=== PATIENT | male | born 1995 | race African-American/Black ===

== ENCOUNTER 2023-03-31 10:04 | Emergency (ER) | payer SELFPAY ==
--- OUTSIDE RECORDS SUMMARY | 2023-03-31 10:09 | XMS REPORT | Continuity of Care Document ---
:1995 Author Organization [facility] t Address [address] [facility] [address] [place] [address] Care Team Providers Name Role Phone Asked, No Pcp Primary Care Physician Unavailable Apple Khalil MD Attending Clinician Oswald Mitchell MD Attending Clinician LOGAN EASTMAN Attending Clinician Unavailable ARABELLA BELL Attending Clinician Unavailable SHMUEL STOCKTON Attending Clinician Unavailable MD APPLE KHALIL Attending Clinician Unavailable YEHUDA MARIA Attending Clinician Unavailable DG XIAO Attending Clinician Unavailable Status, Fax Attending Clinician Unavailable Zarina Marte Attending Clinician [phone] Yun Waldron Attending Clinician Unavailable Martina Jones Attending Clinician Unavailable MONIQUE HECK Attending Clinician Unavailable Andrew Muhammad Attending Clinician [phone] Lauryn Koehler Attending Clinician Unavailable Emily Coburn Attending Clinician Unavailable Varinder Jones Attending Clinician [phone] Gisella Mendoza Attending Clinician [phone] Annelise Schneider Attending Clinician Unavailable Jenifer Bolanos Attending Clinician Unavailable Og Adame Attending Clinician Unavailable Beulah Long Attending Clinician [phone] Alecia Andujar Attending Clinician Unavailable Nuria Wilkins Attending Clinician [phone] Jenifer Nguyen Attending Clinician Unavailable Carola Pan Attending Clinician [phone] Juhi Brambila Attending Clinician Unavailable Roberto Carlos Berg Attending Clinician Unavailable Rosa M Andujar Attending Clinician Unavailable Pito Camarena Attending Clinician Unavailable Netta Jarrett Attending Clinician [phone] WILBER MCINTYRE Admitting Clinician Unavailable Zarina Marte Unavailable [phone] Nuria Wilkins Unavailable [phone] Payers Payer Name Policy Type Policy Number Effective Date Expiration Date S stone Sliding Fee - CI [id number] 2017 2018 [facility] Cat 1 00:00:00 00:00:00 Community Health Sliding Fee - CI NONE 2015 2016 [facility] Cat 1 00:00:00 00:00:00 Community Health Sliding Fee - MC none 2015 2016 [facility] Cat 1 00:00:00 00:00:00 [facility] Problems Condition Condition Condition Status Onset Resolution Last Treating Co mments Source Name Details Category Date Date Treatment Clinician Date Rash, oth Condition Active 2018-062019-03-11 Rodolfo Marte nonspecifi 0-04 14:58:30 Zarina Lagunas c skin 00:00: ty eruption 00 Health Hair loss Condition Active 2018-062019-03-11 Rodolfo Marte 0-04 14:58:30 Zarina Comm uni 00:00: ty 00 Health Influenza Condition Active 2016-062017-05-18 Rodolfo Marte A 2-11 10:27:34 Zarina Comm uni 00:00: ty 00 Health Vaccinatio Condition Active 2016-062017-04-24 Rodolfo Marte for HPV 06-24 15:10:14 Zarina Oneill ommuni 00:00: ty 00 Health Low back Condition Active 2016-062017-04-24 Rodolfo Marte pain 06-24 15:10:14 Zarina Comm uni 00:00: ty 00 Health Physical Condition Active 2016-062017-04-24 Rodolfo Marte examinatio 06-24 15:10:14 Zarina Lagunas n 00:00: ty 00 Health ATTENTION Condition Active 2014-01-11 Cory [facility] DEFICIT 01-11 16:05:54 Rome Best i DISORDER, 00:00: Nuria ty INATTENTIV 00 Health E TYPE Allergies, Adverse Reactions, Alerts This patient has no known allergies or adverse reactions. Social History Social Habit Start Date Stop Date Quantity Comments Source Sexual orientation [facility] History of Social 2022-07-28 2022-07-[address] function 00:00:00 00:00:00 Hospital Tobacco use and 2022-07-28 2022-07-28 Smokeless tobacco Me thodist exposure 00:00:00 00:00:00 non-user Hospital Alcohol intake 2022-07-28 2022-07-28 Current non-drinker M ethodist 00:00:00 00:00:00 of alcohol Hospital (finding) social history E&M 2019-03-11 2019-03-11 Single, has one L egacy Community 14:44:59 14:44:59 sister. Father Health lives in [facility]. Born in [facility]. City: [place]. Lives with mother and grandmother. Dropped out in the 10th grade, has never worked, mother pays all expenses. Buddhist drug use, illicit 2019-03-11 2019-03-11 Never [facility] 14:44:59 14:44:59 Health alcohol use 2019-03-11 2019-03-11 Never [facility] ity 14:44:59 14:44:59 Health social history 2019-03-11 2019-03-11 reviewed today [facility] reviewed E&M 14:44:59 14:44:59 Health is there any 2019-03-11 2019-03-11 No [facility] Commu nity chance that you 14:44:59 14:44:59 Health could be ? sexual orientation 2019-03-11 2019-03-11 Heterosexual [facility] cy Community 14:44:59 14:44:59 Health family support 2014-01-11 2014-01-11 Single, has one Legac y Community 13:08:35 13:08:35 sister. Father Health lives in [facility]. home/family 2014-01-11 2014-01-11 Lives with mother [facility] situation, 13:08:35 13:08:35 and grandmother. Health assessment Sex Ass[birth year] At [birth year] [facility] 00:00:00 00:00:00 Hospital Smoking Status Start Date Stop Date Source Never smoked tobacco [facility] Medications Ordered Filled Start Stop Current Ordering Indication Dosage Frequency Signature Comments Components Source Medication Medication Date Date Medication? Clinician (SIG) Name Name ibuprofen Yes 800mg Q8H Take 1 Metho di (ADVIL) 800 2-[address] MG tablet 00:00: (800 mg Hospi ta 00 total) by l mouth every 8 (eight) hours as needed for mild pain or moderate pain for up to 30 doses. cyclobenzap 2022- No 10mg Q8H Take 1 Met hodi rine 07-28 tablet (10 st (FLEXERIL) 00:00: 04:59 mg total) H ospita 10 mg 00 :00 by mouth l tablet every 8 (eight) hours as needed for muscle spasms for up to 30 days. methylPREDN Yes follow Meth dorothy ISolone 06-[address] (MEDROL 00:00: directions Hosp ama DOSEPAK) 4 00 l mg tablet bromphenira 2022- No 5mL Q.25D Take 5 mL Methodi mine-pseudo 06-21 by mouth 4 s t eph-DM 00:00: 05:59 (four) Hospita - 00 :00 times a l mg/5 mL day as syrup needed for allergies for up to 10 days. azithromyci 2022- No 250mg QD Take 1 Me thodi n 06-[address] (ZITHROMAX) 00:00: 05:59 (250 mg Ho spita 250 MG 00 :00 total) by l tablet mouth daily for 4 days. Take first 2 tablets together, then 1 every day until finished. ibuprofen 2022- No 800mg Q8H Take 1 Meth dorothy (ADVIL,MOTR 02-[address] IN) 800 MG 00:00: 00:00 (800 mg Hos chester tablet 00 :00 total) by l mouth every 8 (eight) hours as needed for mild pain or moderate pain for up to 30 doses. TAMIFLU 2016-06 Yes Zarina 1 By Mouth [facility] (OSELTAMIVI 2-11 [facility] Twice a Com marya R 00:00: Day. ty PHOSPHATE) 00 Health 75 MG CAPS (CYCLOBENZA 2016-06 Yes Zarina 1 By Mouth [facility] MICHELE HCL) 1-17 [facility] three Commun i 10 MG TABS 00:00: times a ty 00 day as Health needed for muscle spasm (NAPROXEN) 2016-06 Yes Zarina 1 by mouth [facility] 500 MG TABS 1-17 [facility] twice a Com marya 00:00: day as ty 00 needed for Health pain and inflammati on ADDERALL Yes One tab in [id number] [facility] (AMPHETAMIN 4-15 the am and 385 Co mmuni E-DEXTROAMP 00:00: one at ty HETAMINE) 00 noon. Health 10 MG TABS Immunizations Ordered Immunization Filled Immunization Date Status Commen ts Source Name Name Tdap Unknown Completed [facility] Vital Signs Vital Name Observation Time Observation Value Comments Source Systolic blood 2022-07-28 22:33:00 123 mm[Hg] Method [facility] pressure Diastolic blood 2022-07-28 22:33:00 66 mm[Hg] [facility] pressure Heart rate 2022-07-28 22:33:00 61 /min [facility] Respiratory rate 2022-07-28 22:33:00 15 /min [facility] Oxygen saturation in 2022-07-28 22:33:00 100 /min [facility] Arterial blood by Pulse oximetry Body temperature 2022-07-28 22:17:00 37.06 Anna [facility] Body height 2022-07-28 20:17:34 165.1 cm [facility] Body weight 2022-07-28 20:17:34 95.255 kg [facility] BMI 2022-07-28 20:17:34 34.95 kg/m2 [facility] Procedures Procedure Date / Time Performed Performing Clinician Sourc e XR LUMBAR SPINE 2 OR 3 2022-07-28 22:05:48 Quinton Herman [facility] VW [place] RESPIRATORY PATHOGEN 2022-06-21 19:49:00 Oswald Mitchell [facility] PANEL WITH COVID-19 RT-PCR Rapid Flu - In House 2017-05-18 10:25:04 Zarina Marte [facility] Gardasil / HPV - 2017-04-24 15:02:07 Zarina Marte C ommunity [facility] Diagnostic evaluation 2014-01-11 13:53:28 [facility] [place] [facility] Community with medical - [id number] [facility] Planned Activity Planned Date Details Comments Source Future Scheduled 2023-03-20 COVID-19 VACCINE [facility] Test 01:57:56 (#1) [code = COVID-19 VACCINE (#1)] Future Scheduled 2023-03-20 Hepatitis C [facility] Test 01:57:56 screening (procedure) [code = 302759017] Future Scheduled 2023-03-20 INFLUENZA VACCINE [facility] Test 01:57:56 (#1) [code = INFLUENZA VACCINE (#1)] Future Scheduled 2023-03-20 RSV VACCINES > 60 Method [facility] Hospital Test 01:57:56 YR (1 - 1-dose 60+ series) [code = RSV VACCINES > 60 YR (1 - 1-dose 60+ series)] Encounters Start End Encounter Admission Attending Care Care Encounter Source Date/Time Date/Time Type Type Clinicians Facility Department ID 2022-07-28 2022-07-28 Emergency [facility], 1.2.840.1 [id number] Methodi 15:09:00 16:34:[address] 3.430.2.7 Hospit a .3.314424 l .8 2022-07-28 2022-07-28 Emergency 1.2.840.1 [id number] Methodi 14:13:00 14:28:[address] 3.430.2.7 Hospit a .3.394626 l .8 2022-07-28 2022-07-28 Emergency [facility] [id number] [place] 00:00:00 00:00:[address] 2022-07-28 2022-07-28 Emergency [facility] [id number] [place] 00:00:00 00:00:00 APPLE [address] 2022-07-28 2022-07-28 Travel 1.2.840.1 1.2.569.893 [id number] Methodi 00:00:00 00:00:[address] 3.430.2.7 0.2.7.3.698 Ho spita .3.472532 084.8 l .8 2022-06-21 2022-06-21 Emergency Bharat, 1.2.840.1 [id number] Methodi 11:30:00 15:37:00 Oswald Jones [address]01.1.[address] 3.430.2.7 Hospit a .3.520205 l .8 2022-06-21 2022-06-21 Emergency BHARAT, [place] [address] [id number] [place] 00:00:00 00:00:00 OSWALD 857 Method i 2022-06-21 2022-06-21 Travel 1.2.840.1 1.2.735.616 [id number] Methodi 00:00:00 00:00:[address] 3.430.2.7 0.2.7.3.698 Ho spita .3.805646 084.8 l .8 2022-01-07 2022-01-07 Emergency EASTMAN, [place] [address] [id number] [place] 00:00:00 00:00:00 LOGAN 853 Method i 2021-12-18 2021-12-18 Emergency EASTMAN, [place] [address] [id number] [place] 00:00:00 00:00:00 LOGAN 391 Method i 2021-05-26 2021-05-26 Emergency BHARAT, [facility] [id number] [place] 00:00:00 00:00:00 OSWALD 117 Method i 2021-04-11 2021-04-11 Emergency BELL, BELL [place] [address] [id number] [place] 00:00:00 00:00:00 831 Method i 2021-03-01 2021-03-01 Emergency STOCKTON, [place] [address] [id number] [place] 00:00:00 00:00:00 SHMUEL 122 Method i 2020-09-05 2020-09-05 Emergency STOCKTON, [place] [address] [id number] [place] 00:00:00 00:00:00 SHMUEL 240 Method i 2020-08-16 2020-08-16 Emergency GUHARSAMM, [place] [address] [id number] [place] 00:00:00 00:00:00 APPLE 121 Method i 2019-04-22 2019-04-22 Emergency RIVENES, [facility] [id number] [place] 00:00:00 00:00:00 YEHUDA 668 Method i 2019-03-22 2019-03-23 Emergency NINOSKA, [facility] [id number] [place] 00:00:00 00:00:00 CONTE 777 Method i 2019-03-11 2019-03-11 Office Status, Fax [facility] En[facility]/ [facility] 00:00:00 00:00:00 [facility] [id number] [facility] [id number] Services Health 2019-03-11 2019-03-11 Office Status, Fax [facility] En[facility]/ [facility] 00:00:00 00:00:00 Visit [facility] [id number] [facility] 938112 [facility] Health 2019-03-11 2019-03-11 Office Status, Fax [facility] Encoun [facility]/ [facility] 00:00:00 00:00:00 Visit [facility] [id number] [facility] 645923 ty [facility] Health 2019-03-11 2019-03-11 Office YING Marte Encounter/ [facility] 00:00:00 00:00:00 Visit Zarina Mendiola [id number] [facility] [id number] [facility] Health 2019-03-11 2019-03-11 Office Zarina Marte Encounter/ [facility] 00:00:00 00:00:00 Visit Yun Waldron [id number] [facility] [id number] [facility] Health 2019-02-27 2019-02-27 Emergency UMANG, [facility] 064 [id number] [place] 00:00:00 00:00:00 MONIQUE 258 Method i 2017-09-04 2017-09-04 Office Andrew Muhammad Enc ounter/ Legacy 00:00:00 00:00:00 Visit Lauryn Koehler [id number] [facility] 084534 Health 2017-09-04 2017-09-04 Office YING Koehler Encounter/ [facility] 00:00:00 00:00:00 Visit Lauryn Mendiola [id number] Com marya Dental 939367 ty Health 2017-09-04 2017-09-04 Office KoehlerYING shahid Encounter/ Legacy 00:00:00 00:00:00 Visit Lauryn Mendiola [id number] Com marya Dental 894770 ty Health 2017-05-21 2017-05-21 Office YING Coburn Encounter / Legacy 00:00:00 00:00:00 Visit Emily Mendiola [id number] Com marya Family 615302 ty Practice Health 2017-05-21 2017-05-21 Office YING Marte Encounter/ [facility] 00:00:00 00:00:00 Visit Zarina Mendiola [id number] [facility] 838602 ty Practice Health 2017-05-18 2017-05-18 Office Zarina Marte Encounter/ [facility] 00:00:00 00:00:00 Visit Emily Coburn [id number] [facility] 836378 ty Practice Health 2017-05-18 2017-05-18 Office YING Marte Encounter/ [facility] 00:00:00 00:00:00 Visit Zarina Mendiola [id number] [facility] 922047 ty Practice Health 2017-05-18 2017-05-18 Office YING Marte Encounter/ [facility] 00:00:00 00:00:00 Visit Zarina Mendiola [id number] [facility] 242577 ty Practice Health 2017-05-18 2017-05-18 Office YING Marte Encounter/ [facility] 00:00:00 00:00:00 Visit Zarina Mendiola [id number] [facility] 625490 ty Practice Health 2017-05-18 2017-05-18 Office YING Waldron Encounte r/ Legacy 00:00:00 00:00:00 Visit Yun Mendiola [id number] Co mmuni Family 444982 ty Practice Health 2017-05-18 2017-05-18 Office Zarina Marte Encounter/ Legacy 00:00:00 00:00:00 Visit Yun Waldron [id number] [facility] 826365 ty Practice Health 2017-05-07 2017-05-07 Office YING Jones [facility] Encoun [facility]/ [facility] 00:00:00 00:00:00 Visit Varinder [id number] Com marya 607789 ty Health 2017-05-06 2017-05-06 Office Gisella Mendoza [facility] [place] Encounter/ Legacy 00:00:00 00:00:00 Visit Wyatt Annelise [id number] Communi 222483 ty Health 2017-04-24 2017-04-24 Office ERNESTO Bolanos Jovan Encounte r/ Legacy 00:00:00 00:00:00 Visit Jenifer Mendiola [id number] C omleoneli Family 365330 ty Practice Health 2017-04-24 2017-04-24 Office ERNESTO Marte Jovan Encounter/ Legacy 00:00:00 00:00:00 Visit Zarina [facility]ola [id number] [facility] 188339 ty Practice Health 2017-04-24 2017-04-24 Office YING Marte Encounter/ Legacy 00:00:00 00:00:00 Visit Zarina [facility]ola [id number] [facility] 503528 ty Practice Health 2017-04-24 2017-04-24 Office Zarina Marte [facility] Jovan Encounter/ Legacy 00:00:00 00:00:00 Visit Jenifer Bolanos [id number] [facility] [id number] Practice Health 2016-02-28 2016-02-28 Office ERNESTO Adame Legdarren Encounter/ Legacy 00:00:00 00:00:00 Visit Og Mejia [id number] [facility] 554062 [facility] Health 2015-06-07 2015-06-07 Office Ethan [facility] Adult Encou nter/ Legacy 00:00:00 00:00:00 Visit Beulah Payan [id number] [facility] 460243 ty Health 2015-03-26 2015-03-26 Office Beulah Long [facility] Yaa Daniels Encounter/ Legacy 00:00:00 00:00:00 Visit Alecia Andujar [id number] [facility] Health 436672 ty Health 2015-03-26 2015-03-26 Office Cory [facility] Yaa Daniels Encou nter/ Legacy 00:00:00 00:00:00 [facility] [id number] [facility] 466820 [facility] Health 2015-03-26 2015-03-26 Office Cory RamseyFlavia davilaie YING Ebony fry Jeremiah Encounter/ Legacy 00:00:00 00:00:00 Visit Alecia Andujar Behavioral [id number] [facility] Health 731967 ty Health 2015-03-19 2015-03-19 Office [place] YING Legacy Encounter / Legacy 00:00:00 00:00:00 Visit NasirJackie [id number] [facility] 026317 ty Services Health 2015-01-18 2015-01-18 Office YING Adame [facility] Encounter/ Legacy 00:00:00 00:00:00 Visit [facility] [id number] C ommuni Health 672407 ty Services Health 2015-01-18 2015-01-18 Office YING Adame [facility] Encounter/ Legacy 00:00:00 00:00:00 Visit [facility] [id number] ommuni Health 525675 ty Services Health 2014-12-05 2014-12-05 Office [place] ERNESTO [place] Encou nter/ [facility] 00:00:00 00:00:00 Visit Nasir Behavioral [id number] [facility] Health 183912 ty Health 2014-12-05 2014-12-05 Office Cory Flavia Bestie YING M ang Jeremiah Encounter/ Legacy 00:00:00 00:00:00 Visit Alecia Andujar Behavioral [id number] [facility] Health 087036 ty Health 2014-11-09 2014-11-09 Office YING Adame [facility] Encounter/ Legacy 00:00:00 00:00:00 Visit [facility] [id number] C ommuni Health 861929 ty Services Health 2014-11-09 2014-11-09 Office YING Adame [facility] Encounter/ Legacy 00:00:00 00:00:00 Visit [facility] [id number] C ommuni Health 705182 ty Services Health 2014-11-07 2014-11-07 Office YING Adame [facility] Encounter/ Legacy 00:00:00 00:00:00 Visit [facility] [id number] C ommuni Health 090445 ty Services Health 2014-11-06 2014-11-06 Office Deep [facility] Encounter/ Legacy 00:00:00 00:00:00 Visit [facility] [id number] C ommuni Health 456497 ty Services Health 2014-11-06 2014-11-06 Office Deep [facility] Legacy Encounter/ Legacy 00:00:00 00:00:00 Visit [facility] [id number] C ommuni Health 587294 ty Services Health 2014-11-01 2014-11-01 Office Deep [facility] Encounter/ Legacy 00:00:00 00:00:00 Visit [facility] [id number] C ommuni Health 728646 ty Services Health 2014-11-01 2014-11-01 Office Deep [facility] Encounter/ Legacy 00:00:00 00:00:00 Visit [facility] [id number] C ommuni Health 054670 ty Services Health 2014-11-01 2014-11-01 [facility] 00:[facility]:00 00:00:00 Visit Behavioral Nasir [id number] Communi Nuria Health 468171 ty Health 2014-10-27 2014-10-27 Office Patrick [facility] [place] Encounte r/ Legacy 00:00:00 00:00:00 Visit Jenifer Vargas [id number] C ommuni Services 678401 ty Health 2014-10-26 2014-10-26 [facility] 00:00:00 00:00:00 Visit Behavioral Nasir [id number] Communi N[facility] Health 086271 ty Health 2014-10-26 2014-10-26 Office [facility] [place] Encou nter/ Legacy 00:00:00 00:00:00 Visit Nasir Behavioral [id number] Communi Nuria Health 082448 ty Health 2014-10-26 2014-10-26 Office [place] Nuria Best [facility] M [place]ple [place] Encounter/ Legacy 00:00:00 00:00:00 Visit Alecia Andujar Behavioral [id number] Communi Health 083004 ty Health 2014-10-02 2014-10-02 Office Nguyenevitafaisal [facility] Legacy Encounter/ Legacy 00:00:00 00:00:00 Visit Jenifer Yee [id number] [facility] [id number] Behavioral [facility] Health 2014-09-26 2014-09-26 Office Ethan [facility] Adult Encou nter/ Legacy 00:00:00 00:00:00 Visit Beulah Payan [id number] [facility] [id number] Health 2014-09-25 2014-09-25 Office [facility] 00:00:00 00:00:00 Visit Carola Pan Behavioral 1 [id number] [facility] Alecia Andujar Health 785228 [facility] Nasir, Nuria [facility] 2014-09-20 2014-09-20 [facility] [place] Encou nter/ Legacy 00:00:00 00:00:00 Visit Behavioral Nasir [id number] [facility] Health [id number] Health 2014-09-20 2014-09-20 Office [facility] [place] Encounter/ Legacy 00:00:00 00:00:00 Visit Alecia Andujar Behavioral [id number] [facility] Health 313380 Health 2014-09-20 2014-09-20 Office Kosta [facility] [place] Enc ounter/ Legacy 00:00:00 00:00:00 Visit Juhi [id number] [facility] marya [id number] Health 2014-09-20 2014-09-20 [facility] [place] Encou nter/ Legacy 00:00:00 00:00:00 Visit Behavioral Nasir [id number] [facility] Health 669506 Health 2014-08-30 2014-08-30 [facility] [place] Encou nter/ Legacy 00:00:00 00:00:00 Visit Nasir Behavioral [id number] [facility] Health 614210 ty Health 2014-08-29 2014-08-29 [facility] [place] Encoun ter/ Legacy 00:00:00 00:00:00 Visit Jenifer [id number] ommuni [id number] Health 2014-08-25 2014-08-25 Office [facility] ERNESTORobert M [place] Encounter/ [facility] 00:00:00 00:00:00 Visit Alecia Andujar Behavioral [id number] [facility] Health 305024 Health 2014-08-23 2014-08-23 Office [place] Nuria Best ERNESTORobert M aple [place] Encounter/ Legacy 00:00:00 00:00:00 Visit Alecia Andujar Behavioral [id number] [facility] 110089 Health 2014-03-29 2014-03-29 Office [facility] ERNESTO Sailaja yons Encounter/ Legacy 00:00:00 00:00:00 Visit Roberto Carlos Berg Behavioral [id number] [facility] 570832 Health 2014-01-16 2014-01-16 Office [place] Nuria Best ERNESTO M aple [place] Encounter/ Legacy 00:00:00 00:00:00 Visit Alecia Andujar Behavioral [id number] [facility] Health [id number] Health 2014-01-11 2014-01-11 Office [place] Nuria Best ERNESTORobert Sailaja yons Encounter/ Legacy 00:00:00 00:00:00 Visit Rosa M Andujar Behavioral [id number] [facility] 639384 Health 2014-01-11 2014-01-11 Office [place] Nuria Best ERNESTORobert M aple [place] Encounter/ Legacy 00:00:00 00:00:00 Visit Alecia Andujar Behavioral [id number] [facility] Health 860037 Health 2013-12-27 2013-12-27 Office Pito Camarena [facility] Ghanshyam Encoun ter/ Legacy 00:00:00 00:00:00 Visit Behavioral [id number] [facility] Health 216867 Health 2013-12-23 2013-12-23 Office YING Jarrettt er/ Legacy 00:00:00 00:00:00 Visit Netta Mendiola [id number] [facility] marya Family 331371 ty Practice Health Results Test Description Test Time Test Comments Results Result Comments Source SARS-CoV-2 (COVID-19) RNA [Presence] in Respiratory sp ecimen by 2020-08-16 23:50:15 [facility]RIST with probe detection Test Item Value Reference Range Interpretation Comme nts SARS-CoV-2 (COVID-19) RNA [Presence] in Respiratory Not detected No t-Detected specimen by CHRIST with probe detection (test code = 95948-7) [facility] [id number] 10:39:00 Test Item Value Reference Range Interpretation Comments hepatitis B surface antigen (test Negative Negative code = 79) [facility] hormone, [id number] 10:39:00 Test Item Value Reference Range Interpretation Comments thyroid stimulating hormone, 0.566 u[iU]/mL 0.450-4.500 serum (test code = 29) [facility] Springs[facility] plasma reagin antibody, [id number] 10:39:00 Test Item Value Reference Range Interpretation Comments rapid plasma reagin antibody, Non Reactive Non Reactive serum (test code = 308) [facility] C antibody, [id number] 10:39:00 Test Item Value Reference Range Interpretation Comments hepatitis C antibody, serum (test code <0.1 0.0-0.9 = 2722) [facility]CM[facility] (Chemiluminescent Microparticle Immuno Assay) 2017-05-18 10:39:00 Test Item Value Reference Range Interpretation Comments HIV-CMIA (Chemiluminescent Non Reactive Non Reactive Microparticle Immuno Assay) (test code = 135893) [facility]vitamin D 25-hydroxy, [id number] 10:39:00 Test Item Value Reference Range Interpretation Comments vitamin D 25-hydroxy, serum (test 14.8 ng/mL 30.0-100.0 L code = 5875) [facility] SpringsNeisseria gonorrhoeae DNA [id number] 10:39:00 Test Item Value Reference Range Interpretation Comments Neisseria gonorrhoeae DNA probe Negative Negative (test code = 12284-6) [facility]chlamydia DNA [id number] 10:39:00 Test Item Value Reference Range Interpretation Comments chlamydia DNA probe (test code = Negative Negative 97640-7) [facility] SpringsLDL cholesterol, [id number] 10:39:00 Test Item Value Reference Range Interpretation Comments LDL cholesterol, serum (test code = 58 mg/dL 0-99 2088-06) [facility] [id number] 10:39:00 Test Item Value Reference Range Interpretation Comments very low density lipoproteins (test 13 mg/dL 5-40 code = 2548) [facility]HDL cholesterol, [id number] 10:39:00 Test Item Value Reference Range Interpretation Comments HDL cholesterol, serum (test code = 48 mg/dL >39 5-9) [facility] Springstriglyceride, serum, [id number] 10:39:00 Test Item Value Reference Range Interpretation Comments triglyceride, serum, fasting (test 67 mg/dL 0-149 code = 2571-8) [facility]cholesterol, [id number] 10:39:00 Test Item Value Reference Range Interpretation Comments cholesterol, serum (test code = 119 mg/dL 282-010 1808-3) [facility]alanine aminotransferase (SGPT), [id number] 10:39:00 Test Item Value Reference Range Interpretation Comments alanine aminotransferase (SGPT), serum 18 1/L 0-44 (test code = 40) [facility] Springsaspartate aminotransferase (SGOT), [id number] 10:39:00 Test Item Value Reference Range Interpretation Comments aspartate aminotransferase (SGOT), 25 1/L 0-40 serum (test code = 39) [facility] Springsalkaline phosphatase, [id number] 10:39:00 Test Item Value Reference Range Interpretation Comments alkaline phosphatase, serum (test code 65 1/L 39-117 = 3) [facility]bilirubin, serum, [id number] 10:39:00 Test Item Value Reference Range Interpretation Comments bilirubin, serum, total (test code <0.2 mg/dL 0.0-1.2 = 43) [facility]albumin/globulin ratio, [id number] 10:39:00 Test Item Value Reference Range Interpretation Comments albumin/globulin ratio, serum (test 1.5 1.2-2.2 code = 146) [facility]globulin, [id number] 10:39:00 Test Item Value Reference Range Interpretation Comments globulin, serum (test code = 3059) 2.8 1.5-4.5 [facility]albumin, [id number] 10:39:00 Test Item Value Reference Range Interpretation Comments albumin, serum (test code = 2) 4.1 g/dL 3.5-5.5 [facility] Healthprotein, total, [id number] 10:39:00 Test Item Value Reference Range Interpretation Comments protein, total, serum (test code = 6.9 g/dL 6.0-8.5 36) [facility]calcium, [id number] 10:39:00 Test Item Value Reference Range Interpretation Comments calcium, serum (test code = 11) 8.7 mg/dL 8.7-10.2 [facility]carbon dioxide, venous [id number] 10:39:00 Test Item Value Reference Range Interpretation Comments carbon dioxide, venous blood (test 24 mmol/L 18-29 code = 15) [facility] Springschloride, [id number] 10:39:00 Test Item Value Reference Range Interpretation Comments chloride, serum (test code = 13) 97 mmol/L 96-106 [facility] Springspotassium, [id number] 10:39:00 Test Item Value Reference Range Interpretation Comments potassium, serum (test code = 35) 3.9 mmol/L 3.5-5.2 [facility]sodium, [id number] 10:39:00 Test Item Value Reference Range Interpretation Comments sodium, serum (test code = 159) 137 mmol/L 134-144 [facility] Springsurea nitrogen/creatinine ratio, [id number] 10:39:00 Test Item Value Reference Range Interpretation Comments urea nitrogen/creatinine ratio, serum 8 9-20 L (test code = 2462) [facility] HealtheGFR if [id number] 10:39:00 Test Item Value Reference Range Interpretation Comments eGFR if 100 >59 (test code = 947926) mL/min/((173/100).m2) [facility] SpringsEstimated Glomerular Filtration Rate (calc)2017-05-18 10:39:00 Test Item Value Reference Range Interpretation Comments Estimated Glomerular 87 >59 Filtration Rate (calc) mL/min/((173/100).m2 (test code = 73214) ) [facility] Springscreatinine, [id number] 10:39:00 Test Item Value Reference Range Interpretation Comments creatinine, serum (test code = 18) 1.19 mg/dL 0.76-1.27 [facility] Healthurea nitrogen, [id number] 10:39:00 Test Item Value Reference Range Interpretation Comments urea nitrogen, blood (test code = 9) 9 mg/dL 6-20 [facility]blood glucose, [id number] 10:39:00 Test Item Value Reference Range Interpretation Comments blood glucose, random (test code = 101 mg/dL 65-99 H 8) [facility] Springsimmature granulocytes, percentage of total cells, blood 2017-05-18 10:39:00 Test Item Value Reference Range Interpretation Comments immature granulocytes, percentage of 0 % total cells, blood (test code = 052296) [facility] Springsbasophil count, [id number] 10:39:00 Test Item Value Reference Range Interpretation Comments basophil count, absolute (test 0.0 x10E3/uL 0.0-0.2 code = 48227) [facility] SpringsEosinophil Absolute [id number] 10:39:00 Test Item Value Reference Range Interpretation Comments Eosinophil Absolute Count (test 0.0 X10E3/UL 0.0-0.4 code = 594472) [facility] Springsmonocyte count, blood, [id number] 10:39:00 Test Item Value Reference Range Interpretation Comments monocyte count, blood, automated 0.9 X10E3/UL 0.1-0.9 (test code = 3076) [facility]lymphocyte count, blood, [id number] 10:39:00 Test Item Value Reference Range Interpretation Comments lymphocyte count, blood, 1.1 X10E3/UL 0.7-3.1 automated (test code = 3074) [facility] SpringsAbsolute [id number] 10:39:00 Test Item Value Reference Range Interpretation Comments Absolute Neutrophils (test code 2.2 X10E3/UL 1.4-7.0 = 51394) [facility]basophils as percent of blood [id number] 10:39:00 Test Item Value Reference Range Interpretation Comments basophils as percent of blood 1 % leukocytes (test code = 2426) [facility] Springseosinophils as percent of blood [id number] 10:39:00 Test Item Value Reference Range Interpretation Comments eosinophils as percent of blood 0 % leukocytes (test code = 4170) [facility] Springsmonocytes as percent of blood [id number] 10:39:00 Test Item Value Reference Range Interpretation Comments monocytes as percent of blood 22 % leukocytes (test code = 2421) [facility]lymphocytes as percent of blood [id number] 10:39:00 Test Item Value Reference Range Interpretation Comments lymphocytes as percent of blood 27 % leukocytes (test code = 317) [facility] Springsneutrophils as percent of blood [id number] 10:39:00 Test Item Value Reference Range Interpretation Comments neutrophils as percent of blood 50 % leukocytes (test code = 316) [facility] Springsplatelet [id number] 10:39:00 Test Item Value Reference Range Interpretation Comments platelet count (test code = 66) 242 X10E3/UL 150-379 [facility] Springsred blood cell distribution [id number] 10:39:00 Test Item Value Reference Range Interpretation Comments red blood cell distribution width 12.5 % 12.3-15.4 (test code = 1030) [facility] corpuscular hemoglobin concentration, [id number] 10:39:00 Test Item Value Reference Range Interpretation Comments mean corpuscular hemoglobin 34.2 G/DL 31.5-35.7 concentration, RBC (test code = 1029) [facility] corpuscular hemoglobin, [id number] 10:39:00 Test Item Value Reference Range Interpretation Comments mean corpuscular hemoglobin, RBC 28.8 pg 26.6-33.0 (test code = 1031) [facility] corpuscular volume, [id number] 10:39:00 Test Item Value Reference Range Interpretation Comments mean corpuscular volume, RBC (test code 84 fL 79-97 = 315) [facility]hematocrit, [id number] 10:39:00 Test Item Value Reference Range Interpretation Comments hematocrit, blood (test code = 64) 43.6 % 37.5-51.0 [facility] Springshemoglobin, [id number] 10:39:00 Test Item Value Reference Range Interpretation Comments hemoglobin, blood (test code = 65) 14.9 g/dL 13.0-17.7 [facility] Springserythrocyte (RBC) [id number] 10:39:00 Test Item Value Reference Range Interpretation Comments erythrocyte (RBC) count (test 5.17 X10E6/UL 4.14-5.80 code = 67) [facility] Springsleukocyte count, [id number] 10:39:00 Test Item Value Reference Range Interpretation Comments leukocyte count, blood (test 4.3 X10E3/UL 3.4-10.8 code = 68) [facility] Springsinfluenza virus A [id number] 09:57:00 Test Item Value Reference Range Interpretation Comments influenza virus A antigen (test code positive = 3413) [facility]
[2023-03-31 11:12] LABS: Absolute Lymphocytes (CBC) 1.1 K/uL (0.7-4.9); Hematocrit 43.3 % (39.6-49.0); Lymphocytes % 13.6 % (15.3-44.8); MCV 83.7 fL (80-100); MPV 7.6 fL (7.6-11.3); Platelets 212 thou/uL (152-406); RBC Red Blood Cell Count 5.17 M/uL (4.33-5.43)
[2023-03-31] MEDS ORDERED: DIPHENHYDRAMINE 50 MG/ML VIAL ONE (11:15)
[2023-03-31] MEDS ORDERED: METOCLOPRAMIDE 10 MG/2mL INJ ONE (11:15)
[2023-03-31] MEDS ORDERED: dexAMETHasone 10 MG/ML VIAL ONE (11:16)
[2023-03-31] MEDS ORDERED: KETOROLAC 30 MG/ML INJ ONE ×2 (11:16→13:28)
[2023-03-31] MEDS ORDERED: NA CHLORIDE 0.9% 1,000 ML ONE (11:16)
[2023-03-31] MEDS ORDERED: ACETAMINOPHEN 500 MG TAB ONE (11:20)
[2023-03-31 11:25] LABS: Potassium 3.7 mEq/L (3.5-5.1)
[2023-03-31] MEDS ORDERED: CEFTRIAXONE 1000 MG/VIAL ONE (12:18)
[2023-03-31] MEDS ORDERED: NA CHLORIDE 0.9% 50 ML ONE (12:18)
--- NOTE | 2023-03-31 13:20 | EDPHYS ---
Physician Documentation [facility] Name: Ana Hall Age: 27 yrs Sex: Male : 1995 Arrival Date: 03/31/2023 Time: 10:04 Bed 11 Private MD: ED Physician Pepe Dunaway HPI: 03/31 10:27 This 27 yrs old Black Male presents to ER via Ambulatory with complaints of Migraine, ec2 Fever, Sore Throat - neck. 10:27 Patient arrives today due to concern for URI signs and symptoms. Patient reports for ec2 the past 4 days he has been having cough and cold symptoms associated congestion as well as sore throat with subjective fevers and chills and associated nausea without vomiting. Patient reports he has sick contact at home with similar symptoms. Patient also complained of some neck pain. Patient denies any medical problems, not a smoker, no medication allergies.. Historical: - Allergies: 10:11 No Known Allergies; eh3 - Immunization history:: Adult Immunizations not up to date. - Social history:: Smoking status: Reported history of juuling and/or vaping. Patient uses alcohol, but reports only rare drinking. ROS: 10:27 Constitutional: as per hpi ec2 Exam: 10:27 Constitutional: GEN: NAD Head: atraumatic neck: Good range of motion, no meningismus ec2 oropharynx: Posterior pharyngeal erythema without exudates or obvious abscess Eyes: EOMI Ears: External ears are normal. CV: regular rate LUNGS: no respiratory distress, soft, nontender, no guarding, not rigid ABD: non-distended SKIN: no evidence of rashes MSK: no evidence of trauma NEURO: moves all extremities equally Vital Signs: 10:08 BP 137 / 79; Pulse 99; Resp 18; Temp 99.9; Pulse Ox 99% on R/A; Weight 104.33 kg; eh3 Height 5 ft. 5 in. ; 11:00 BP 130 / 73; Pulse 102; Resp 18; Temp 102.6(O); Pulse Ox 100% on R/A; eh3 12:00 BP 127 / 72; Pulse 98; Resp 18; Pulse Ox 99% on R/A; eh3 12:56 Temp 99.5(O); eh3 12:58 BP 133 / 68; Pulse 88; Resp 18; Pulse Ox 97% on R/A; eh3 10:08 Body Mass Index 38.27 (104.33 kg, 165.1 cm) 3 MDM: 10:09 Patient medically screened. 7 10:27 ED course: Patient arrives today due to concern for URI symptoms. Examination ec2 remarkable for well-appearing nontoxic dividual is otherwise in no acute distress with reassuring examination and no evidence of meningismus on HEENT exam and no evidence of oropharyngeal abscess. Will obtain viral swabs as well as a strep swab, obtain lab work and treat the patient's symptoms. Currently considering viral URI, considered meningitis, low suspicion for pneumonia.. 11:40 ED course: Patient is group B strep positive patient is strep positive, does have a ec2 reassuring CBC without evidence of leukocytosis, metabolic profile with some renal dysfunction noted. Negative for flu. . 11:42 ED course: Given the patient's tachycardia as well as fever, patient meets SIRS ec2 criteria, given the patient's strep pharyngitis, patient meets sepsis criteria. Will obtain blood cultures as well as lactic acid and treat with IV antibiotics.. 12:57 ED course: EKG independently reviewed and interpreted by me, shows normal sinus rhythm, ec2 rate of 87, no acute ST segment elevations, intervals are nonconcerning, nonspecific T wave inversions noted in the lateral leads.. 12:58 ED course: Negative COVID testing, lactic acid within normal ranges. . ec2 13:19 Data reviewed: vital signs. ED course: On reassessment patient reports marked ec2 improvement in his symptoms. Recommended inpatient admission for sepsis secondary to strep pharyngitis, patient elected to be discharged. I will start patient antibiotics. I instructed him in strict return precautions. . 03/31 10:22 Order name: COVID-19 SARS RT PCR; Complete Time: 12:58 ec2 03/31 10:22 Order name: Influenza Screen (a \T\ B); Complete Time: 11:40 ec2 03/31 10:22 Order name: Strep; Complete Time: 11:40 ec2 03/31 10:22 Order name: CBC with Diff; Complete Time: 11:40 ec2 03/31 10:22 Order name: BMP; Complete Time: 11:40 ec2 03/31 11:43 Order name: Blood Culture Adult (2) ec2 03/31 11:43 Order name: Lactate w/ 2H reflex if indic.; Complete Time: 12:58 ec2 03/31 11:43 Order name: EKG; Complete Time: 11:43 ec2 03/31 11:43 Order name: EKG - Nurse/Tech; Complete Time: 12:56 ec2 03/31 11:43 Order name: IV Saline Lock - Large Bore; Complete Time: 11:47 ec2 Administered Medications: 11:00 Drug: NS 0.9% IV 1000 ml IV at 1 bolus Per protocol; 1000 mL bolus Route: IV; Rate: 1 eh3 bolus; Site: right antecubital; 12:57 Follow up: IV Status: Completed infusion; IV Intake: 1000ml eh3 11:00 Drug: Ketorolac IVP 15 mg IVP once Route: IVP; Site: right antecubital; eh3 12:57 Follow up: Response: No adverse reaction eh3 11:00 Drug: metoCLOPramide IVP 10 mg IVP once; over 1 to 2 minutes Route: IVP; Site: right eh3 antecubital; 12:57 Follow up: Response: No adverse reaction eh3 11:00 Drug: diphenhydrAMINE IVP 25 mg IVP once Route: IVP; Site: right antecubital; eh3 12:57 Follow up: Response: No adverse reaction eh3 11:00 Drug: Decadron - Dexamethasone IVP 10 mg IVP once Route: IVP; Site: right antecubital; eh3 12:57 Follow up: Response: No adverse reaction eh3 11:15 Drug: Acetaminophen PO 1000 mg PO once Route: PO; eh3 12:56 Follow up: Temp 99.5 Oral; Response: No adverse reaction; Temperature is decreased eh3 12:20 Drug: Rocephin IV 1 grams IV at calculated rate once; Given slow IV push per pharmacy eh3 instructions Route: IV; Rate: calculated rate; Site: right antecubital; 12:56 Follow up: Response: No adverse reaction; IV Status: Completed infusion; IV Intake: [id number] Disposition Summary: 03/31/23 13:20 Discharge Ordered Notes: Location: Home ec2 Condition: Stable ec2 Diagnosis - Sepsis, unspecified organism ec2 - Streptococcal pharyngitis ec2 Discharge Instructions: - Discharge Summary Sheet ec2 - Pharyngitis ec2 Forms: - Medication Reconciliation Form ec2 - Thank You Letter ec2 - Antibiotic Education ec2 - Prescription Opioid Use ec2 - Patient Portal Instructions ec2 - Leadership Thank You Letter ec2 Prescriptions: - Cephalexin 500 mg Oral Capsule - take 1 capsule ORAL route every 12 hours for 10 days; 20 capsule; Refills: 0, ec2 Product Selection Permitted Critical care time excluding procedures: 11:43 Critical care time: Bedside Care: 30 minutes. Total time: 30 minutes ec2 Signatures: Dispatcher [employer] Mitra Crawford RN RN 3 Latonia Morillo FNP BLANKER PRESS OPERATOR jh7 Pepe Dunaway MD MD ec2
--- NOTE | 2023-03-31 13:20 | ER ---
Nurse's Notes [facility] Name: Ana Hall Age: 27 yrs Sex: Male : 1995 Arrival Date: 03/31/2023 Time: 10:04 Bed 11 Private MD: Diagnosis: Sepsis, unspecified organism;Streptococcal pharyngitis Presentation: 03/31 10:08 Chief complaint: Patient states: migraine, fever, neck pain since Thursday. Coronavirus eh3 screen: Vaccine status: Patient reports being unvaccinated. Ebola Screen: No symptoms or risks identified at this time. Initial Sepsis Screen: Does the patient meet any 2 criteria? HR > 90 bpm. No. Patient's initial sepsis screen is negative. Does the patient have a suspected source of infection? No. Patient's initial sepsis screen is negative. Risk Assessment: Do you want to hurt yourself or someone else? Patient reports no desire to harm self or others. Onset of symptoms was March 31, 2023. 10:08 Method Of Arrival: Ambulatory eh3 10:08 Acuity: CROW 3 eh3 Triage Assessment: 10:11 General: Appears in no apparent distress. uncomfortable, Behavior is cooperative, eh3 appropriate for age. Pain: Complains of pain in frontal lobe, both sides of neck. Neuro: Level of Consciousness is awake, alert, obeys commands, Oriented to person, place, time, situation. Cardiovascular: Capillary refill < 3 seconds Patient's skin is warm and dry. Respiratory: Airway is patent Respiratory effort is even, unlabored, Respiratory pattern is regular, symmetrical. Historical: - Allergies: 10:11 No Known Allergies; eh3 - Immunization history:: Adult Immunizations not up to date. - Social history:: Smoking status: Reported history of juuling and/or vaping. Patient uses alcohol, but reports only rare drinking. Screenin:08 [facility] ED Fall Risk Assessment (Adult) Score/Fall Risk Level 0 - 2 = Low Risk. Abuse eh3 screen: Denies threats or abuse. Denies injuries from another. Nutritional screening: No deficits noted. Tuberculosis screening: No symptoms or risk factors identified. Assessment: 10:08 Reassessment: No changes from previously documented assessment. See triage assessment. eh3 10:59 Reassessment: Patient appears in no apparent distress at this time. Patient and/or eh3 family updated on plan of care and expected duration. Pain level reassessed. Patient is alert, oriented x 3, equal unlabored respirations, skin warm/dry/pink. 12:00 Reassessment: Patient appears in no apparent distress at this time. Patient and/or eh3 family updated on plan of care and expected duration. Pain level reassessed. Patient is alert, oriented x 3, equal unlabored respirations, skin warm/dry/pink. 12:58 Reassessment: Patient appears in no apparent distress at this time. Patient and/or eh3 family updated on plan of care and expected duration. Pain level reassessed. Patient is alert, oriented x 3, equal unlabored respirations, skin warm/dry/pink. Vital Signs: 10:08 BP 137 / 79; Pulse 99; Resp 18; Temp 99.9; Pulse Ox 99% on R/A; Weight 104.33 kg; eh3 Height 5 ft. 5 in. ; 11:00 BP 130 / 73; Pulse 102; Resp 18; Temp 102.6(O); Pulse Ox 100% on R/A; eh3 12:00 BP 127 / 72; Pulse 98; Resp 18; Pulse Ox 99% on R/A; eh3 12:56 Temp 99.5(O); eh3 12:58 BP 133 / 68; Pulse 88; Resp 18; Pulse Ox 97% on R/A; eh3 10:08 Body Mass Index 38.27 (104.33 kg, 165.1 cm) 3 ED Course: 10:08 Patient arrived in ED. mg5 10:08 Patient has correct armband on for positive identification. Bed in low position. Call 3 light in reach. Side rails up X2. Provided Education on: Use of call smith. Pulse ox on. NIBP on. 10:09 Latonia Morillo FNP is PHCP. jh7 10:09 Erick Baires MD is Attending Physician. jh7 10:09 Pepe Dunaway MD is Attending Physician. ec2 10:11 Triage completed. eh3 10:11 Arm band placed on. eh3 10:25 Nell Lester, JANNETTE is Primary Nurse. mb9 10:58 Mitra French, JANNETTE is Primary Nurse. eh3 10:58 Influenza Screen (a \T\ B) Sent. eh3 10:58 Strep Sent. eh3 10:58 COVID-19 SARS RT PCR Sent. eh3 13:36 No provider procedures requiring assistance completed. IV discontinued, intact, eh3 bleeding controlled, No redness/swelling at site. Pressure dressing applied. Administered Medications: 11:00 Drug: NS 0.9% IV 1000 ml IV at 1 bolus Per protocol; 1000 mL bolus Route: IV; Rate: 1 eh3 bolus; Site: right antecubital; 12:57 Follow up: IV Status: Completed infusion; IV Intake: 1000ml eh3 11:00 Drug: Ketorolac IVP 15 mg IVP once Route: IVP; Site: right antecubital; eh3 12:57 Follow up: Response: No adverse reaction eh3 11:00 Drug: metoCLOPramide IVP 10 mg IVP once; over 1 to 2 minutes Route: IVP; Site: right 3 antecubital; 12:57 Follow up: Response: No adverse reaction eh3 11:00 Drug: diphenhydrAMINE IVP 25 mg IVP once Route: IVP; Site: right antecubital; eh3 12:57 Follow up: Response: No adverse reaction eh3 11:00 Drug: Decadron - Dexamethasone IVP 10 mg IVP once Route: IVP; Site: right antecubital; eh3 12:57 Follow up: Response: No adverse reaction eh3 11:15 Drug: Acetaminophen PO 1000 mg PO once Route: PO; eh3 12:56 Follow up: Temp 99.5 Oral; Response: No adverse reaction; Temperature is decreased eh3 12:20 Drug: Rocephin IV 1 grams IV at calculated rate once; Given slow IV push per pharmacy eh3 instructions Route: IV; Rate: calculated rate; Site: right antecubital; 12:56 Follow up: Response: No adverse reaction; IV Status: Completed infusion; IV Intake: [id number] Medication: 13:37 VIS not applicable for this client. eh3 Intake: 12:56 IV: 50ml; Total: 50ml. eh3 12:57 IV: 1000ml; Total: 1050ml. eh3 Outcome: 13:20 Discharge ordered by MD. ec2 13:36 Discharged to home ambulatory, with family, eh3 13:36 Condition: stable 13:36 Discharge instructions given to patient, Instructed on discharge instructions, follow up and referral plans. medication usage, Demonstrated understanding of instructions, follow-up care, medications, Prescriptions given X 1, 13:41 Patient left the ED. 3 Signatures: Mitra French RN RN eh3 Latonia Morillo, PUBLIC HEALTH CLINICAL NURSE SPECIALIST PUBLIC HEALTH CLINICAL NURSE SPECIALIST jh7 Nell Lester RN RN mb9 Vitaly Mineral mg5 Pepe Dunaway MD MD ec2
[2023-03-31] MEDS ORDERED: DOXYCYCLINE 100 MG CAP PO ONE (13:27)
[2023-03-31] MEDS ORDERED: HYDROCODONE/APAP 5/325 MG TAB ONE (13:28)
--- NOTE | 2023-04-01 11:58 | EKG ---
Test Date: 2023-03-31 Test Time: 12:51:47 Engineer Conductor: ECHO MEASUREMENT RESULTS: Intervals: Rate: 87 NH: 196 QRSD: 82 QT: 350 QTc: 421 [place]: P: 53 NH: 196 QRS: 73 T: -57 INTERPRETIVE STATEMENTS: Normal sinus rhythm ST & T wave abnormality, consider inferolateral ischemia Abnormal ECG Compared to ECG 03/02/2023 16:32:13 Possible ischemia now present Sinus bradycardia no longer present First degree AV block no longer present Left ventricular hypertrophy no longer present Early repolarization no longer present ST (T wave) deviation still present Electronically Signed On 04-01-23 11:55:49 CDT by Harrison Cabrera
== END 2023-03-31 13:41 | disposition home or self-care (01) ==
LOC: ER 10:04
DX: A41.9 Sepsis, unspecified organism (principal); J02.0 Streptococcal pharyngitis; Z20.822 Contact with and (suspected) exposure to COVID-19
CPT/HCPCS: 36415; 80048; 83605; 85025; 87040; 87081; 87635; 87804; 93005; J0696; J1100; J1200; J2765; J7030

== ENCOUNTER → 2023-08-24 | Emergency (ER) | payer SELFPAY ==
[~2023-08-24] MED LIST: KETOROLAC 30 MG/ML INJ ONE; dexAMETHasone 4 MG TAB ONE
--- NOTE | 2023-08-24 10:53 | EDPHYS ---
Physician Documentation [facility] Name: Ana Hall Age: 27 yrs Sex: Male : 1995 Arrival Date: 08/24/2023 Time: 09:39 Bed 12 Private MD: ED Physician Pepe Dunaway HPI: 08/23 09:55 This 27 yrs old Black Male presents to ER via Unassigned with complaints of Flu ec2 Symptoms. 09:55 Patient arrives today for evaluation of URI signs and symptoms. Patient reports ec2 approximately 1 week of symptoms. Patient reports he is having cough and congestion as well as body aches and sore throat. Patient reports some fevers that have been responsive to Tylenol and ibuprofen. No vomiting, no diarrhea, no issues with p.o. intake. No known sick contacts.. Historical: - Allergies: 09:59 No Known Allergies; iw - Home Meds: 09:59 None [Active]; iw - PMHx: 09:59 None; iw - PSHx: 09:59 None; iw - Immunization history:: Adult Immunizations unknown. - Social history:: Smoking status: Patient denies any tobacco usage or history of. ROS: 09:55 Constitutional: as per hpi ec2 Exam: 09:55 Constitutional: GEN: NAD Head: atraumatic Eyes: EOMI Ears: External ears are normal. ec2 Mouth: Posterior pharyngeal erythema without exudate appreciated. CV: regular rate LUNGS: no respiratory distress, no wheezes, rales, rhonchi ABD: non-distended, soft, nontender, no guarding, not rigid SKIN: no evidence of rashes MSK: no evidence of trauma NEURO: moves all extremities equally Vital Signs: 09:57 BP 119 / 79; Pulse 65; Resp 16; Temp 98; Pulse Ox 99% on R/A; Weight 102.06 kg; Height iw 5 ft. 5 in. ; 11:00 BP 118 / 68; Pulse 71; Resp 16; Temp 98.1; Pulse Ox 100% on R/A; iw 09:57 Body Mass Index 37.44 (102.06 kg, 165.1 cm) iw MDM: 09:55 Patient medically screened. ec2 09:56 Data reviewed: vital signs. ED course: Patient arrives today for evaluation of URI ec2 signs and symptoms. Examination remarkable for well-appearing nontoxic dividual is otherwise in no acute distress. Will obtain strep swab to evaluate for strep pharyngitis, ultimately suspect viral infection causing the patient's symptoms. Will give the patient Toradol as well as Decadron for the symptoms as well.. 10:52 ED course: Patient is strep negative. Ultimately suspect viral infection causing ec2 patient's symptoms. Will discharge home. Return precautions given.. 08/23 09:55 Order name: Strep ec2 08/23 10:26 Order name: Throat Culture EDMS Administered Medications: 10:50 Drug: Ketorolac IM 30 mg IM once Route: IM; Site: right deltoid; iw 11:00 Follow up: Response: No adverse reaction iw 10:50 Drug: Dexamethasone PO 10 mg PO once Route: PO; iw 11:10 Follow up: Response: No adverse reaction iw Disposition Summary: 08/24/23 10:53 Discharge Ordered Notes: Location: Home ec2 Condition: Stable ec2 Diagnosis - Viral infection, unspecified ec2 Followup: ec2 - With: Private Physician - When: - Reason: Re-evaluation by your physician Discharge Instructions: - Discharge Summary Sheet ec2 - Viral Illness, Adult ec2 Forms: - Work release form ec2 - Medication Reconciliation Form ec2 - Thank You Letter ec2 - Antibiotic Education ec2 - Prescription Opioid Use ec2 - Patient Portal Instructions ec2 - Leadership Thank You Letter ec2 Prescriptions: - Prednisone 20 mg Oral Tablet - take 2 tablets ORAL route once daily for 5 days; 10 tablet; Refills: 0, Product ec2 Selection Permitted Signatures: Dispatcher [employer] Mckayla Melendez RN RN Yovana French RN RN Pepe Dunaway MD MD ec2
--- NOTE | 2023-08-24 10:53 | ER ---
Nurse's Notes [facility] Name: Ana Hall Age: 27 yrs Sex: Male : 1995 Arrival Date: 08/24/2023 Time: 09:39 Bed 12 Private MD: Diagnosis: Viral infection, unspecified Presentation: 08/23 09:57 Chief complaint: Patient states: fever since Thursday , body aches, headache, sore iw throat. Coronavirus screen: Client presents with at least one sign or symptom that may indicate coronavirus-19. Ebola Screen: Patient negative for fever greater than or equal to 101.5 degrees Fahrenheit, and additional compatible Ebola Virus Disease symptoms Patient denies exposure to infectious person. Patient denies travel to an Ebola-affected area in the 21 days before illness onset. No symptoms or risks identified at this time. Initial Sepsis Screen: Does the patient meet any 2 criteria? No. Patient's initial sepsis screen is negative. Does the patient have a suspected source of infection? No. Patient's initial sepsis screen is negative. Risk Assessment: Do you want to hurt yourself or someone else? Patient reports no desire to harm self or others. Onset of symptoms was August 22, 2023. 09:57 Method Of Arrival: Ambulatory iw 09:57 Acuity: CROW 4 iw Triage Assessment: 10:00 General: Appears in no apparent distress. Behavior is calm, cooperative. iw Historical: - Allergies: 09:59 No Known Allergies; iw - Home Meds: 09:59 None [Active]; iw - PMHx: 09:59 None; iw - PSHx: 09:59 None; iw - Immunization history:: Adult Immunizations unknown. - Social history:: Smoking status: Patient denies any tobacco usage or history of. Screenin:32 [facility] ED Fall Risk Assessment (Adult) History of falling in the last 3 months, ph including since admission No falls in past 3 months (0 pts) Confusion or Disorientation No (0 pts) Intoxicated or Sedated No (0 pts) Impaired Gait No (0 pts) Mobility Assist Device Used No (0 pt) Altered Elimination No (0 pt) Score/Fall Risk Level 0 - 2 = Low Risk Oriented to surroundings, Maintained a safe environment, Hourly rounding (assess needs \T\ fall precautionary measures) done, Used ambulatory aids as needed (educated on \T\ assisted with). Abuse screen: Denies threats or abuse. Denies injuries from another. Nutritional screening: No deficits noted. Tuberculosis screening: No symptoms or risk factors identified. Assessment: 10:00 General: Appears in no apparent distress. Behavior is calm, cooperative. General: iw Reports chills for fever for feeling ill for fatigue for. Pain: Complains of pain in throat. Neuro: Level of Consciousness is awake, alert, obeys commands, Oriented to person, place, time, situation, Moves all extremities. Full function. Cardiovascular: Patient's skin is warm and dry. Respiratory: Respiratory effort is even, unlabored, Respiratory pattern is regular, symmetrical. Derm: Skin is intact, is healthy with good turgor. Musculoskeletal: Range of motion: intact in all extremities. Vital Signs: 09:57 BP 119 / 79; Pulse 65; Resp 16; Temp 98; Pulse Ox 99% on R/A; Weight 102.06 kg; Height iw 5 ft. 5 in. ; 11:00 BP 118 / 68; Pulse 71; Resp 16; Temp 98.1; Pulse Ox 100% on R/A; iw 09:57 Body Mass Index 37.44 (102.06 kg, 165.1 cm) iw ED Course: 09:41 Patient arrived in ED. ec2 09:41 Pepe Dunaway MD is Attending Physician. ec2 09:59 Triage completed. iw 10:33 Mckayla Gusman, RN is Primary Nurse. iw 10:33 Arm band placed on. iw 11:32 Patient has correct armband on for positive identification. Bed in low position. Call ph light in reach. 11:33 No provider procedures requiring assistance completed. Patient did not have IV access ph during this emergency room visit. Administered Medications: 10:50 Drug: Ketorolac IM 30 mg IM once Route: IM; Site: right deltoid; iw 11:00 Follow up: Response: No adverse reaction iw 10:50 Drug: Dexamethasone PO 10 mg PO once Route: PO; iw 11:10 Follow up: Response: No adverse reaction iw Medication: 11:32 VIS not applicable for this client. ph Outcome: 10:53 Discharge ordered by . ec2 11:33 Discharged to home ambulatory, ph 11:33 Condition: good 11:33 Discharge instructions given to patient, Instructed on discharge instructions, follow up and referral plans. medication usage, Demonstrated understanding of instructions, follow-up care, medications, Prescriptions given X 1, 11:33 Patient left the ED. ph Signatures: Mckayla Gusman RN RN Yovana French RN RN Pepe Freeman MD MD ec2
[2023-08-24 12:04] VITALS: BP 119/79; TEMP 98; O2SAT 99
== END ==
LOC: ER 09:39
DX: B34.9 Viral infection, unspecified (principal)
CPT/HCPCS: 87070; 87081; 96372; 99284; J8540

== ENCOUNTER 2024-01-28 11:36 | Emergency (ER) | payer SELFPAY ==
--- NOTE | 2024-01-28 12:11 | EDPHYS ---
Physician Documentation [facility] Name: Ana Hall Age: 28 yrs Sex: Male : 1995 Arrival Date: 01/28/2024 Time: 11:36 Bed 12 Private MD: ED Physician Quinton Rodarte HPI: 01/27 13:11 This 28 yrs old Black Male presents to ER via Ambulatory with complaints of Toothache. rt 13:11 Patient presents to the ED with few days of a left upper dental pain. Denies difficulty rt swallowing, abscess. Denies other acute complaints at this time, symptoms are mild in severity, no other aggravating elevating factors.. Historical: - Allergies: : No Known Allergies; dd2 - Home Meds: : None [Active]; dd2 - PMHx: :59 None; dd2 - PSHx: :59 None; dd2 - Immunization history:: Adult Immunizations up to date. - Infectious Disease History:: Denies. - Social history:: Smoking status: Patient denies any tobacco usage or history of. - Family history:: not pertinent. ROS: 13:11 Constitutional: Negative for fever, chills, and weight loss, Cardiovascular: Negative rt for chest pain, palpitations, and edema, Respiratory: Negative for shortness of breath, cough, wheezing, and pleuritic chest pain, Abdomen/GI: Negative for abdominal pain, nausea, vomiting, diarrhea, and constipation, Skin: Negative for injury, rash, and discoloration, Neuro: Negative for headache, weakness, numbness, tingling, and seizure, 13:11 ENT: Positive for Dental pain, Exam: 13:11 Constitutional: This is a well developed, well nourished patient who is awake, alert, rt and in no acute distress. Head/Face: Normocephalic, atraumatic. Chest/axilla: Normal chest wall appearance and motion. Nontender with no deformity. No lesions are appreciated. Cardiovascular: Regular rate and rhythm with a normal S1 and S2. No gallops, murmurs, or rubs. Normal PMI, no JVD. No pulse deficits. Respiratory: Lungs have equal breath sounds bilaterally, clear to auscultation and percussion. No rales, rhonchi or wheezes noted. No increased work of breathing, no retractions or nasal flaring. Abdomen/GI: Soft, non-tender, with normal bowel sounds. No distension or tympany. No guarding or rebound. No evidence of tenderness throughout. Skin: Warm, dry with normal turgor. Normal color with no rashes, no lesions, and no evidence of cellulitis. MS/ Extremity: Pulses equal, no cyanosis. Neurovascular intact. Full, normal range of motion. Neuro: Awake and alert, GCS 15, oriented to person, place, time, and situation. Cranial nerves II-XII grossly intact. Motor strength 5/5 in all extremities. Sensory grossly intact. Cerebellar exam normal. Normal gait. 13:11 ENT: Small dental carry noted, no drainable abscess, OP otherwise benign. Vital Signs: 11:58 BP 129 / 74; Pulse 56; Resp 15; Temp 96.9; Pulse Ox 99% ; dd2 MDM: 12:03 Patient medically screened. rt 13:11 Differential diagnosis: dental caries, dental abscess. Data reviewed: vital signs, rt nurses notes. I considered the following discharge prescriptions or medication management in the emergency department Medications were administered in the Emergency Department. See MAR. Test considered but Not performed: CT: No signs of drainable abscess, Santy's angina, CT scan not indicated. Counseling: I had a detailed discussion with the patient and/or guardian regarding the historical points, exam findings, and any diagnostic results supporting the discharge/admit diagnosis, the need for outpatient follow up, to return to the emergency department if symptoms worsen or persist or if there are any questions or concerns that arise at home. Administered Medications: 12:11 CANCELLED (Duplicate Order): [id number] mg IVP once iw 12:17 Drug: Ketorolac IM 30 mg IM once Route: IM; Site: right deltoid; iw 12:30 Follow up: Response: No adverse reaction iw Disposition Summary: 01/28/24 12:10 Discharge Ordered Notes: Location: Home rt Problem: new rt Symptoms: have improved rt Condition: Stable rt Diagnosis - Dental pain rt Followup: rt - With: Private Physician - When: 2 - 3 days - Reason: Discharge Instructions: - Discharge Summary Sheet rt - Dental Pain rt Forms: - Medication Reconciliation Form rt - Antibiotic Education rt - Prescription Opioid Use rt - Patient Portal Instructions rt - Leadership Thank You Letter rt Prescriptions: - Amoxicillin 875 mg Oral Tablet - take 1 tablet ORAL route every 12 hours for 10 days; 20 tablet; Refills: 0, rt Product Selection Permitted Signatures: Mckayla Gusman RN RN iw Quinton Rodarte MD MD rt ARIS ALBA RN RN dd2 Corrections: (The following items were deleted from the chart) 12:11 12:10 Ketorolac IVP 30 mg IVP once ordered. rt chris
--- NOTE | 2024-01-28 12:11 | ER ---
Nurse's Notes [facility] Name: Ana Hall Age: 28 yrs Sex: Male : 1995 Arrival Date: 01/28/2024 Time: 11:36 Bed 12 Private MD: Diagnosis: Dental pain Presentation: 01/27 11:58 Chief complaint: Patient states: Lt sided toothache. Coronavirus screen: At this time, dd2 the client does not indicate any symptoms associated with coronavirus-19. Ebola Screen: No symptoms or risks identified at this time. Initial Sepsis Screen: Does the patient meet any 2 criteria? No. Patient's initial sepsis screen is negative. Does the patient have a suspected source of infection? No. Patient's initial sepsis screen is negative. Risk Assessment: Do you want to hurt yourself or someone else? Patient reports no desire to harm self or others. Onset of symptoms is unknown. 11:58 Method Of Arrival: Ambulatory dd2 11:58 Acuity: CROW 4 dd2 Triage Assessment: 11:59 General: Appears in no apparent distress. Behavior is calm, cooperative. Pain: dd2 Complains of pain in lt toothache. EENT: Reports pain in lt tooth. Historical: - Allergies: 11:59 No Known Allergies; dd2 - Home Meds: 11:59 None [Active]; dd2 - PMHx: 11:59 None; dd2 - PSHx: 11:59 None; dd2 - Immunization history:: Adult Immunizations up to date. - Infectious Disease History:: Denies. - Social history:: Smoking status: Patient denies any tobacco usage or history of. - Family history:: not pertinent. Screenin:30 [facility] ED Fall Risk Assessment (Adult) History of falling in the last 3 months, iw including since admission No falls in past 3 months (0 pts) Confusion or Disorientation No (0 pts) Intoxicated or Sedated No (0 pts) Impaired Gait No (0 pts) Mobility Assist Device Used No (0 pt) Altered Elimination No (0 pt) Score/Fall Risk Level 3 or more points = High Risk Oriented to surroundings, Maintained a safe environment. Abuse screen: Denies threats or abuse. Denies injuries from another. Nutritional screening: No deficits noted. Tuberculosis screening: No symptoms or risk factors identified. Assessment: 12:00 General: Appears in no apparent distress. Behavior is calm, cooperative. Pain:. Neuro: iw Level of Consciousness is awake, alert, obeys commands, Oriented to person, place, time, situation, Moves all extremities. Full function. Cardiovascular: Patient's skin is warm and dry. Respiratory: Respiratory effort is even, unlabored, Respiratory pattern is regular. Derm: Skin is intact, is healthy with good turgor. Musculoskeletal: Range of motion: intact in all extremities. Vital Signs: 11:58 BP 129 / 74; Pulse 56; Resp 15; Temp 96.9; Pulse Ox 99% ; dd2 ED Course: 11:43 Patient arrived in ED. im 11:43 Quinton Rodarte MD is Attending Physician. rt 11:59 Triage completed. dd2 11:59 Arm band placed on right wrist. Patient placed in an exam room, on a stretcher, on dd2 pulse oximetry, Patient notified of wait time. 12:00 Patient has correct armband on for positive identification. Provided Education on: . iw 12:08 Mckayla Gusman RN is Primary Nurse. iw 12:30 No provider procedures requiring assistance completed. Patient did not have IV access iw during this emergency room visit. Administered Medications: 12:11 CANCELLED (Duplicate Order): [id number] mg IVP once iw 12:17 Drug: Ketorolac IM 30 mg IM once Route: IM; Site: right deltoid; iw 12:30 Follow up: Response: No adverse reaction iw Medication: 12:00 VIS not applicable for this client. iw Outcome: 12:10 Discharge ordered by . rt 12:30 Discharged to home ambulatory, iw 12:30 Condition: good 12:30 Discharge instructions given to patient, Instructed on discharge instructions, follow up and referral plans. Demonstrated understanding of instructions, follow-up care, medications, Prescriptions given X 1, 12:31 Patient left the ED. iw Signatures: Mckayla Gusman RN RN iw Quinton Rodarte MD MD rt Felicity Ferraro im ARIS ALBA RN RN dd2
[2024-01-28] MEDS ORDERED: KETOROLAC 30 MG/ML INJ ONE (12:13)
[2024-01-28 12:34] VITALS: BP 129/74; TEMP 96.9; O2SAT 99
== END 2024-01-28 12:31 | disposition home or self-care (01) ==
LOC: ER 11:36
DX: K08.89 Other specified disorders of teeth and supporting structures (principal)
CPT/HCPCS: 96372; 99284